=== PATIENT | female | born 1935 | race Caucasian/White ===

== ENCOUNTER 2016-12-24 10:41 | Emergency (ER) | payer OTHER ==
[2016-12-24] MEDS ORDERED: ATROVENT NEB INH ONE (11:11)
[2016-12-24] MEDS ORDERED: SOLU-MEDROL IV ONE (11:11)
[2016-12-24] MEDS ORDERED: ASPIRIN PO STA (11:11)
[2016-12-24] MEDS ORDERED: XOPENEX NEB INH ONE (11:11)
[2016-12-24] MEDS ORDERED: NITROGLYCERIN SL PRN (11:11)
[2016-12-24] MEDS ORDERED: NS NEB INH SCH (11:15)
--- NOTE | 2016-12-24 11:18 | PROVIDER DOCUMENTATION ---
HPI-Respiratory General - General Chief Complaint: Shortness of Breath Stated Complaint: CANT BREATHE Time Seen by Provider: 12/24/16 10:57 Source: patient Allergies/Adverse Reactions: Patient Allergies Allergy/AdvReac Type Severity Reaction Status Date / Time codeine [Codeine] Allergy Intermediate Tremors Verified 12/24/16 13:19 levofloxacin [From Levaquin] AdvReac Intermediate "affects Verified 12/24/16 13: 19 joints" Home Medications: Home Medication List Medication Instructions Recorded Confirmed Last Taken Type Albuterol Sulfate Inhaler 1 - 2 puff INH Q4H PRN PRN 02/07/16 12/24/16 12/23/16 History [Ventolin Hfa] Buspirone [Buspar] 15 mg PO BID 02/07/16 12/24/16 12/23/16 History Fenofibric Acid D.r. [Trilipix] 135 mg PO QAM 02/07/16 12/24/16 12/23/16 History Fluticasone/Salmeterol [Advair 1 each IH Q12HR 02/07/16 12/24/16 12/23/16 History 500-50 Diskus] Lactulose 15 gm PO BID PRN PRN 02/07/16 12/24/16 1 Day Ago History 10 gm Levothyroxine [Synthroid] 112 microgm PO DAILY 02/07/16 12/24/16 12/23/16 History PRAVAstatin [Pravachol] 80 mg PO DAILY 02/07/16 12/24/16 12/23/16 History Tiotropium [place] Inhaler 18 mcg INH RTDAILY 02/07/16 12/24/16 12/23/16 History [Spiriva] Trazodone E.r. [Oleptro ER] 75 mg PO QHS 02/07/16 12/24/16 12/23/16 History Famotidine [Pepcid] 40 mg PO BID #0 tablet 02/22/16 12/24/16 12/23/16 Rx Aspirin 81 mg PO DAILY #0 tab.chew 06/14/16 12/24/16 12/23/16 Rx Indapamide 2.5 mg PO DAILY 12/24/16 12/24/16 12/23/16 History Irbesartan [Avapro] 300 mg PO DAILY 03/12/24/16 12/23/16 History Rivaroxaban [Xarelto] 20 mg PO QHS 12/24/16 12/24/16 12/23/16 History - History of Present Illness-Resp Nature of Presenting Problem: patient is a 81 y/o F that presents with shortness of breath x 1 week that got worse today. patient was scheduled to see at 245pm but couldn't wait. She had seen last week and had clear lung sounds. patient reports low grade fever last pm, cough but denies chest pain. History of COPD and is on home o2 at 2lpmnc. patient was o2 saturation was 88% on 2 lpm Quality of Pain: reports: tightness Severity in ED: reports: moderate Onset/Duration: reports: gradual, 1 week ago Timing: reports: still present, getting worse Context: reports: multiple patients with similar complaints. denies: out of meds Cough Quality/Degree: reports: moderate, dry cough Episode Frequency: chronic episodes Current Respiratory Medication Therapy: Initiated see nurses note Modifying Factors: worse with: coughing Associated Symptoms: reports: cough, shortness of breath, short of breath, wheezing. denies: fever/chills, flu-like symptoms, headache, nasal congestion, nasal drainage Similar Symptoms Previously?: Yes Recently seen or treated by another doctor?: Yes Review of Systems - Adult - REVIEW OF SYSTEMS - ADULT Constitutional: denies: chills, fever Eyes: reports: no symptoms reported Ears, Nose, Mouth & Throat: denies: ear pain, sinus problem, throat pain, throat swelling Cardiovascular: denies: chest pain, palpitations, syncope Respiratory: reports: cough, shortness of breath, wheezing Gastrointestinal: denies: abdominal pain, diarrhea, nausea, vomiting Genitourinary: reports: no symptoms reported Musculoskeletal: denies: back pain, joint pain, neck pain Integumentary: reports: no symptoms reported Neurological: denies: dizziness/vertigo, headache/migraines, seizure, syncope Psychiatric: reports: no symptoms reported Endocrine: reports: no symptoms reported Hematologic/Lymphatic: reports: no symptoms reported Allergic/Immunologic: reports: no symptoms reported All Other Systems: Reviewed and Negative Past History - Adult - PAST MEDICAL HISTORY-ADULT Review of Records: reports: Old Records Reviewed, Nursing Assessment Review, Medications Reviewed Cardiovascular: reports: HTN, hyperlipidemia, PAD Respiratory: reports: asthma, COPD, pneumonia Gastrointestinal: reports: pancreatitis - PRIOR SURGERIES/PROCEDURES Surgical/Procedure History: reports: cholecystectomy, other (breast biopsy) - IMMUNIZATION STATUS Childhood Immunizations: See Nurse Assessment Flu Vaccine: See Nurse Assessment - FAMILY HISTORY Family History: reviewed, not pertinent - SOCIAL HISTORY Smoking: quit greater than 1 year, cigarettes Living Situation: family Physical Exam-General - PHYSICAL EXAM-ADULT Initial Vital Signs Reviewed: Yes - CONSTITUTIONAL General Appearance: alert, mild distress - EYES Eyes: PERRL/EOMI, pink conjunctivae - HEAD, EARS, NOSE, MOUTH & THROAT HENMT: normocephalic/atraumatic, moist mucous membranes, normal ENT inspection - NECK Neck: full range of motion, normal inspection. negative: lymphadenopathy - RESPIRATORY Respiratory: no respiratory distress, no accessory muscle use, wheezing ( throughout all lung mejía) - CARDIOVASCULAR Cardiovascular: other (irregular regular). negative: no JVD, no murmur - GASTROINTESTINAL (ABDOMEN) Abdominal Exam: normal bowel sounds, non tender, soft, no organomegaly, no pulsatile mass - MUSCULOSKELETAL Extremity: normal range of motion, normal inspection, no pedal edema, no calf tenderness, normal capillary refill, pelvis stable - SKIN Integumentary: normal color, warm/dry - NEUROLOGIC Neurologic: grossly normal, no motor/sensory deficits - PSYCHIATRIC Psych/Mental Status: normal mood/affect, normal thought content, normal thought process, oriented x 3 Progress - PLAN OF CARE/RESULTS Progress/Plan/Lab Results: plan of care-labs, meds, breathing tx 1420- will be contacted Vital Signs Temp Pulse Resp BP Pulse Ox 12/24/16 12:23 76 24 167/74 98 12/24/16 11:48 74 22 97 12/24/16 10:45 98.8 F 76 22 158/77 88 L codeine [Codeine] Allergy (Intermediate, Verified 12/24/16 13:19) Tremors levofloxacin [From Levaquin] Adverse Reaction (Intermediate, Verified 12/24/16 13:19) "affects joints" told by Dr. Sinha not to take Albuterol Sulfate Inhaler [Ventolin Hfa] 1 - 2 puff INH Q4H PRN PRN 02/07/16 Buspirone [Buspar] 15 mg PO BID 02/07/16 Fenofibric Acid D.r. [Trilipix] 135 mg PO QAM 02/07/16 Fluticasone/Salmeterol [Advair 500-50 Diskus] 1 each IH Q12HR 02/07/16 Lactulose 15 gm PO BID PRN PRN 02/07/16 Levothyroxine [Synthroid] 112 microgm PO DAILY 02/07/16 PRAVAstatin [Pravachol] 80 mg PO DAILY 02/07/16 Tiotropium [place] Inhaler [Spiriva] 18 mcg INH RTDAILY 02/07/16 Trazodone E.r. [Oleptro ER] 75 mg PO QHS 02/07/16 Famotidine [Pepcid] 40 mg PO BID #0 tablet 02/22/16 Aspirin 81 mg PO DAILY #0 tab.chew 06/14/16 Indapamide 2.5 mg PO DAILY 12/24/16 Irbesartan [Avapro] 300 mg PO DAILY 12/24/16 Rivaroxaban [Xarelto] 20 mg PO QHS 12/24/16 Laboratory 12/24/16 12/24/16 12/24/16 13:10 13:10 13:10 WBC RBC Hgb Hct MCV MCH MCHC RDW Std Deviation Plt Count MPV Immature Gran % (Auto) Neut % (Auto) Lymph % (Auto) [place] % (Auto) Eos % (Auto) Baso % (Auto) Immature Gran # (Auto) Neut # (Auto) Lymph # (Auto) [place] # (Auto) Eos # (Auto) Baso # (Auto) PT 10.8 INR 1.06 PTT (Actin FS) 20.7 L D-Dimer Specimen Type Sample Site pH pCO2 pO2 HCO3 Base Excess Oxyhemoglobin ABG O2 Sat (Calculated) ABG O2 Saturation ABG Carboxyhemoglobin ABG Methemoglobin Dominik Test A-a O2 Difference Total Hemoglobin Lactate Liter Flow Blood Gas Modality FiO2 % Sodium Potassium Chloride Carbon Dioxide Anion Gap BUN Creatinine Estimated GFR/1.73 m2 BUN/Creatinine Ratio Glucose Calculated Osmolality Calcium Magnesium Total Bilirubin AST ALT Alkaline Phosphatase Creatine Kinase Troponin T < 0.010 [id number] Pept 959 H Total Protein Albumin Globulin Albumin/Globulin Ratio 12/24/16 12/24/16 12/24/16 13:10 13:10 13:10 WBC 7.94 RBC 4.55 Hgb 13.8 Hct 41.9 MCV 92.1 MCH 30.3 MCHC 32.9 L RDW Std Deviation 13.0 Plt Count 161 MPV 9.8 Immature Gran % (Auto) 0.4 Neut % (Auto) 75.9 H Lymph % (Auto) 15.7 L [place] % (Auto) 7.2 Eos % (Auto) 0.3 Baso % (Auto) 0.5 Immature Gran # (Auto) 0.03 Neut # (Auto) 6.03 Lymph # (Auto) 1.25 [place] # (Auto) 0.57 Eos # (Auto) 0.02 Baso # (Auto) 0.04 PT INR PTT (Actin FS) D-Dimer < 0.10 Specimen Type Sample Site pH pCO2 pO2 HCO3 Base Excess Oxyhemoglobin ABG O2 Sat (Calculated) ABG O2 Saturation ABG Carboxyhemoglobin ABG Methemoglobin Dominik Test A-a O2 Difference Total Hemoglobin Lactate Liter Flow Blood Gas Modality FiO2 % Sodium 133 L Potassium 3.6 Chloride 88 L Carbon Dioxide 32 Anion Gap 13 BUN 14 Creatinine 0.8 Estimated GFR/1.73 m2 > 60 BUN/Creatinine Ratio 18 Glucose 128 H Calculated Osmolality 268 Calcium 9.2 Magnesium 1.8 Total Bilirubin 0.25 AST 30 ALT 16 Alkaline Phosphatase 37 Creatine Kinase 181 H Troponin T Bbf-G-Pzzmfaxgtdm Pept Total Protein 8.2 Albumin 3.8 Globulin 4.4 Albumin/Globulin Ratio 0.9 12/24/16 11:40 WBC RBC Hgb Hct MCV MCH MCHC RDW Std Deviation Plt Count MPV Immature Gran % (Auto) Neut % (Auto) Lymph % (Auto) [place] % (Auto) Eos % (Auto) Baso % (Auto) Immature Gran # (Auto) Neut # (Auto) Lymph # (Auto) [place] # (Auto) Eos # (Auto) Baso # (Auto) PT INR PTT (Actin FS) D-Dimer Specimen Type ARTERIAL Sample Site R RADIAL pH 7.43 pCO2 54 H* pO2 65 HCO3 32.3 H Base Excess 9.6 H Oxyhemoglobin 91.7 L ABG O2 Sat (Calculated) 17.5 ABG O2 Saturation 93.2 L ABG Carboxyhemoglobin 0.70 ABG Methemoglobin 0.8 Dominik Test YES A-a O2 Difference 67.0 Total Hemoglobin 13.6 Lactate 1.60 Liter Flow 2.0 Blood Gas Modality CANNULA FiO2 % 28.0 Sodium Potassium Chloride Carbon Dioxide Anion Gap BUN Creatinine Estimated GFR/1.73 m2 BUN/Creatinine Ratio Glucose Calculated Osmolality Calcium Magnesium Total Bilirubin AST ALT Alkaline Phosphatase Creatine Kinase Troponin T Wqs-[id number]-Benkyndycgu Pept Total Protein Albumin Globulin Albumin/Globulin Ratio Orders Category Date Time Status Cardiac Monitoring DIRECTED Care 12/24/16 11:11 Active Saline Loc NOW Care 12/24/16 11:11 Active CHEST-2 VIEWS [RAD] Stat Exams 12/24/16 11:11 Draft ABG [RESP] Routine Lab 12/24/16 11:40 Completed CBC WITH ELECTRONIC DIFF [HEME] Stat Lab 12/24/16 13:10 Completed CK PROFILE [SP CHEM] Stat Lab 12/24/16 13:10 Results COMPREHENSIVE METABOLIC PANEL [CHEM] Stat Lab 12/24/16 13:10 Results D-DIMER [CHEM] Stat Lab 12/24/16 13:10 Completed MAGNESIUM [CHEM] Stat Lab 12/24/16 13:10 Results PRO B-NATRIURETIC PEPTIDE Stat Lab 12/24/16 13:10 Completed PROTIME WITH INR [COAG] Stat Lab 12/24/16 13:10 Completed PTT [COAG] Stat Lab 12/24/16 13:10 Completed TROPONIN T Stat Lab 12/24/16 13:10 Completed Aspirin Med 12/24/16 11:11 Discontinued 325 mg PO STAT STA Ipratropium [place] Neb [Atrovent Neb] Med 12/24/16 11:21 Discontinued 0.5 mg .ROUTE .STK-MED ONE Ipratropium [place] Neb [Atrovent Neb] Med 12/24/16 11:11 Discontinued 1.5 mg INH NOW ONE Levalbuterol Neb [Xopenex Neb] Med 12/24/16 11:21 Discontinued 1.25 mg .ROUTE .STK-MED ONE Levalbuterol Neb [Xopenex Neb] Med 12/24/16 11:11 Discontinued 3.75 mg INH NOW ONE Methylprednisolone Sod Succ [Solu-Medrol] Med 12/24/16 11:11 Discontinued 125 mg IV NOW ONE Nitroglycerin Sl [Nitroglycerin] Med 12/24/16 11:11 Active 0.4 mg SL Q5M PRN PRN Sodium Chloride 0.9% Neb [Ns Neb] Med 12/24/16 11:15 Active 5 ml INH DIRECTED Aerosol Treatments Routine Oth 12/24/16 11:13 Completed Aerosol Treatments Stat Oth 03/14/17 11:13 Completed EKG [EKG] Stat Ther 12/24/16 11:11 Draft pt will be d/c home f/u with , rx given, pt was clinically stable. - REASSESSMENT Reassessment #1 Time Reassessed: 14:15 Status: improving Reassessment Comment: has some shortness of breath but breathing is improving - EKG 1 Time of EKG reading by physician:: 10:47 EKG Read and Signed by:: Rasheed Baker EKG Interpretation (*Must complete 3 of following elements*): Abnormal Rate: 77 Rhythm: Sinus rhythm with psvcs [place]: normal QRS: normal AR Interval: normal ST Wave: non-specific ST changes - XRAY 1 XRAY Study: Chest Impression: Abnormal XRAY Interpretation: nad, copd changes - CONSULTS/PCP/HOSPITALIST Notification #1 *Consult/PCP/Hospitalist*: Time Discussed: 14:22 Reason/Comments: write doxycycline f/u in office Consult Disposition: F/U in office Departure - Departure Time of Disposition Order: 14:28 DIAGNOSIS: COPD with exacerbation Disposition: HOME 01 Certified Medical Emergency: Emergent Condition: Stable Referrals: Crow Sinha Jr, MD [Primary Care Provider] - (call today for f/u in a week) Instructions: Chronic Obstructive Pulmonary Disease Exacerbation, Katu-hn-Qvpy Attestation - Scribe Verification/Attestation Scribe:: Byron Luis Acting as Scribe for:: Rasheed Baker Scribe documention review:: This chart was documented by a scribe and accurately reflects the service the provider performed and the decisions made by the provider. Physician Attestation - Physician Attestation I, the provider, attest to the following statement:: Rasheed Baker Physician documentation Attestation:: This documentation recorded by the scribe accurately reflects the service I personally performed and the decisions made by me.
[2016-12-24] MEDS ORDERED: XOPENEX NEB ONE (11:21)
[2016-12-24] MEDS ORDERED: ATROVENT NEB ONE (11:21)
[2016-12-24 11:43] LABS: ALLEN TEST YES; BE 9.6 mmoll (-3.0-3.0); BLOOD TYPE ARTERIAL; DRAW SITE R RADIAL; METHB 0.8 % (0.0-1.5); O2(CT) 17.5 mL/dL (15.0-23.0); PO2(98.6) 65 mmHg (60-100); SAMPLE BLOOD; SAO2 93.2 % (95.0-100.0); THB 13.6 g/dL (11.5-17.4); pH(98.6) 7.43 (7.35-7.45)
[2016-12-24 11:46] LABS: MODALITY CANNULA; PCO2(98.6) 54 mmHg (35-45)
[2016-12-24 12:24] VITALS: BP 167/74
--- NOTE | 2016-12-24 12:27 | Diag Imaging Result Document ---
PROCEDURE NAME: CHEST-2 VIEWS - 12/24/2016 PA AND LATERAL RADIOGRAPHS OF THE CHEST: COMPARISON: 06/13/2016. FINDINGS: There is evidence of prior granulomatous disease, stable. The lungs are grossly clear, otherwise. There is no definite pleural fluid collection. Cardiac silhouette and central vasculature are unremarkable. IMPRESSION: No definite acute pathology.
--- NOTE | 2016-12-24 13:04 | EKG Report ---
Test Performed on : 12/24/2016 10:47:24 AM Test Reason : SOB Blood Pressure : / mmHG Vent. Rate : 077 BPM Atrial Rate : 077 BPM P-R Int : 182 ms QRS Dur : 084 ms QT Int : 374 ms P-R-T Axes : 076 038 089 degrees QTc Int : 423 ms Sinus rhythm. with premature supraventricular complexes. Septal infarct (cited on or before 08-MAR-2016) Abnormal ECG When compared with ECG of 08-MAR-2016 06:25, premature supraventricular complexes. are now present Vent. rate has increased BY 26 BPM Nonspecific T wave abnormality now evident in Inferior leads T wave inversion now evident in Lateral leads Unconfirmed Result
[2016-12-24 13:24] LABS: MANUAL DIFF NEEDED? NO
[2016-12-24 13:37] LABS: BASO% 0.5 % (0.0-0.8); EOS# 0.02 X1000 (0.0-0.7); EOS% 0.3 % (0.0-10.0); HEMATOCRIT 41.9 % (37.0-47.0); HEMOGLOBIN 13.8 g/dL (12.0-16.0); IMM GRAN# 0.03 X1000 (0.0-0.04); IMM GRAN% 0.4 % (0.0-0.5); LYMPH# 1.25 X1000 (1.2-3.4); LYMPH% 15.7 % (20.5-51.1); MCH 30.3 PG (27-31); MCHC 32.9 g/dL (33-37); MCV 92.1 FL (81-99); MONO# 0.57 X1000 (0.11-0.59); MONO% 7.2 % (1.7-9.3); MPV 9.8 FL (7.4-10.4); NEUT% 75.9 % (42.2-75.2); PLT 161 X1000 (130-400); RBC 4.55 XMIL (4.2-5.4)
[2016-12-24 13:54] LABS: INR 1.06; PROTIME 10.8 Seconds (9.2-11.7); PTT 20.7 Seconds (22.0-36.0)
[2016-12-24 14:07] LABS: AGAP 13; ALBUMIN 3.8 g/dL (3.5-5.0); ALKALINE PHOSPHATASE 37 U/L (32-104); BUN 14 mg/dL (8-22); CALCIUM 9.2 mg/dL (8.8-10.2); CHLORIDE 88 mmol/L (98-107); CK PROFILE 181 U/L (24-173); COSMO 268; GOT 30 U/L (10-30); GPT 16 U/L (10-36); MAGNESIUM 1.8 mg/dL (1.5-2.7); POTASSIUM 3.6 mmol/L (3.5-5.1); SODIUM 133 mmol/L (136-145); TCO2 32 mmol/L (25-35); TOTAL BILIRUBIN 0.25 mg/dL (0.20-1.00); TOTAL PROTEIN 8.2 g/dL (6.3-8.3)
[2016-12-24 14:27] LABS: CK-MB 7.22 ng/mL (0.0-5.0)
== END 2016-12-24 14:57 | disposition home or self-care (01) ==
LOC: ED 10:41
DX: J44.1 Chronic obstructive pulmonary disease with (acute) exacerbation (principal); R94.31 Abnormal electrocardiogram [ECG] [EKG]; R06.02 Shortness of breath; R50.9 Fever, unspecified; R05 Cough; R06.2 Wheezing; I10 Essential (primary) hypertension; E78.5 Hyperlipidemia, unspecified; Z79.899 Other long term (current) drug therapy; J45.909 Unspecified asthma, uncomplicated; Z79.01 Long term (current) use of anticoagulants; Z79.82 Long term (current) use of aspirin; Z99.81 Dependence on supplemental oxygen; Z87.891 Personal history of nicotine dependence
CPT/HCPCS: 71020; 80053; 82550; 82553; 82805; 83735; 83880; 84484; 85025; 85379; 85610; 85730; 93005; 94640; J2930